=== PATIENT | female | born 1940 | race Caucasian/White ===

== ENCOUNTER 2018-09-01 10:46 | Emergency (ER) | payer OTHER ==
[~2018-09-01] VITALS: Ht 165.1 cm; Wt 79.4 kg
[~2018-09-01 10:46] MED LIST: ASPI81CH PO; ATOR40TA PO; Altoprev20 MG PO; CALCIUM GUMMIE1 EACH PO; CHOL10002 PO; CLOP75 PO; HYDACE5 PO; Hair, Skin & N1 EACH PO; LISI5 PO; METO25ER PO; NITR.4SL SL; PARO20; PRAV20 PO; SERT25 PO; TEMA15 PO; Vitamin C1000 M1 PO; Vitamin D2000 UNIT PO
[2018-09-01] MEDS ORDERED: ROSU10TA PO (11:18)
[2018-09-01] MEDS ORDERED: UBID10 (11:19)
[2018-09-01 11:22] LABS: BASOPHILS ABSOLUTE AUTO 0.07 K/mm3 (0.00-0.23); BASOPHILS PERCENT AUTO 1 % (0-2); EOSINOPHILS ABSOLUTE AUTO 0.16 K/mm3 (0.00-0.68); EOSINOPHILS PERCENT AUTO 2 % (0-6); Hematocrit 43.4 % (33.0-51.0); Hemoglobin 13.9 g/dL (11.5-16.0); IMMATURE GRAN ABSOLUTE AUTO 0.02 K/mm3 (0.00-0.10); IMMATURE GRAN PERCENT AUTO 0 % (0-1); LYMPHOCYTES ABSOLUTE AUTO 1.92 K/mm3 (0.84-5.20); LYMPHOCYTES PERCENT AUTO 27 % (21-46); MONOCYTES ABSOLUTE AUTO 0.89 K/mm3 (0.16-1.47); MONOCYTES PERCENT AUTO 13 % (4-13); Mean Corpuscular HGB 29.6 pg (26.0-34.0); Mean Corpuscular Volume 93 fL (80-100); Mean Platelet Volume 9.2 fL (9.1-12.4); NEUTROPHILS ABSOLUTE AUTO 4.08 K/mm3 (1.96-9.15); NEUTROPHILS PERCENT AUTO 57 % (41-73); Platelet Count 324 K/mm3 (150-400); RDW Coefficient Variation 13.9 % (11.7-14.2); RDW Standard Deviation 47.2 fL (35.1-46.3); Red Blood Cell Count 4.69 M/mm3 (3.80-5.20); White Blood Cell Count 7.14 K/mm3 (4.00-11.30)
[2018-09-01 12:00] LABS: Alanine Aminotransfer (ALT/SGP 28 U/L (12-78); Albumin, Blood 3.9 g/dL (3.4-5.0); Alk Phos 94 U/L (50-136); Anion Gap 5 mmol/L (6-16); Aspartate Aminotrans (AST/SGOT 31 U/L (12-37); Bilirubin, Total 0.4 mg/dL (0.1-1.0); Blood Urea Nitrogen 11 mg/dL (8-24); Bun/Creatinine Ratio 10.2 (12.0-20.0); CO2, Blood 27 mmol/L (21-32); Calcium, Blood 9.1 mg/dL (8.5-10.1); Chloride, Blood 108 mmol/L (98-108); Creatinine, Blood 1.08 mg/dL (0.40-1.00); Globulin, Blood 3.8 g/dL (2.2-4.0); Glomerular Filtration Rate 52 (60-); Glucose, Blood 131 mg/dL (70-99); Potassium, Blood 4.5 mmol/L (3.5-5.5); Sodium, Blood 140 mmol/L (136-145); Total Protein, Blood 7.7 g/dL (6.4-8.2); Troponin I <0.015 ng/mL (0.000-0.040)
== END 2018-09-01 14:19 | disposition home or self-care (01) ==
LOC: ER 10:46
PROVIDERS: Emergency Medicine
DX: R53.1 Weakness (principal); Z88.1 Allergy status to other antibiotic agents; Z88.8 Allergy status to other drugs, medicaments and biological substances; Z79.82 Long term (current) use of aspirin; Z79.899 Other long term (current) drug therapy; I25.2 Old myocardial infarction; I25.10 Atherosclerotic heart disease of native coronary artery without angina pectoris
CPT/HCPCS: 36415; 71045; 80053; 83880; 84484; 85025; 93005; 93010; 99285-25

== ENCOUNTER 2020-01-24 11:16 | Day surgery (SDC) | payer OTHER ==
[~2020-01-24 11:16] MED LIST changes: +ROSU10TA PO; +UBID10
[2020-01-24] MEDS ORDERED: METO25ER (12:04)
[2020-01-24] MEDS ORDERED: ELIQUIS5 MG (12:04)
--- NOTE | 2020-01-24 14:19 | NUR ---
PT DRESSED, IV DC'D INTACT, PT DC'D BY THIS RN BY WC WITH SON DRIVING PT HOME
== END 2020-01-24 22:34 | disposition home or self-care (01) ==
LOC: MHTC 11:16
DX: I48.0 Paroxysmal atrial fibrillation (principal); I48.92 Unspecified atrial flutter
CPT/HCPCS: 92960; 93005; 93010; 93312; 93325; 99152; J2250; J3010; J7040

== ENCOUNTER 2020-10-08 13:23 | Emergency (ER) | payer OTHER ==
[~2020-10-08] VITALS: Ht 162.6 cm; Wt 74.4 kg
[~2020-10-08 13:23] MED LIST changes: +ELIQUIS5 MG; +METO25ER
[2020-10-08 13:52] LABS: BASOPHILS ABSOLUTE AUTO 0.05 K/mm3 (0.00-0.23); BASOPHILS PERCENT AUTO 1 % (0-2); EOSINOPHILS ABSOLUTE AUTO 0.12 K/mm3 (0.00-0.68); EOSINOPHILS PERCENT AUTO 1 % (0-6); Hematocrit 43.9 % (33.0-51.0); Hemoglobin 14.2 g/dL (11.5-16.0); IMMATURE GRAN ABSOLUTE AUTO 0.03 K/mm3 (0.00-0.10); IMMATURE GRAN PERCENT AUTO 0 % (0-1); LYMPHOCYTES ABSOLUTE AUTO 2.16 K/mm3 (0.84-5.20); LYMPHOCYTES PERCENT AUTO 22 % (21-46); MONOCYTES PERCENT AUTO 9 % (4-13); Mean Corpuscular HGB 29.7 pg (26.0-34.0); Mean Corpuscular HGB Conc 32.3 g/dL (31.5-36.5); Mean Corpuscular Volume 92 fL (80-100); Mean Platelet Volume 9.1 fL (9.1-12.4); NEUTROPHILS ABSOLUTE AUTO 6.38 K/mm3 (1.96-9.15); NEUTROPHILS PERCENT AUTO 66 % (41-73); Platelet Count 271 K/mm3 (150-400); RDW Coefficient Variation 14.4 % (11.7-14.2); RDW Standard Deviation 49.3 fL (35.1-46.3); Red Blood Cell Count 4.78 M/mm3 (3.80-5.20); White Blood Cell Count 9.64 K/mm3 (4.00-11.30)
[2020-10-08 14:14] LABS: Albumin, Blood 3.6 g/dL (3.4-5.0); Albumin/Globulin Ratio 0.9 (0.8-1.8); Bilirubin, Total 0.6 mg/dL (0.1-1.0); Bun/Creatinine Ratio 9.3 (12.0-20.0); Calcium, Blood 9.3 mg/dL (8.5-10.1); Creatinine, Blood 1.08 mg/dL (0.40-1.00); Potassium, Blood 4.2 mmol/L (3.5-5.5); Total Protein, Blood 7.6 g/dL (6.4-8.2)
[2020-10-08] MEDS ORDERED: ATEN25 PO (14:51)
[2020-10-08] MEDS ORDERED: FLUO10 PO (14:53)
[2020-10-08] MEDS ORDERED: HYDR1TAB94 PO (17:28)
[2020-10-08] MEDS ORDERED: XYLIMELTS550 MG MM (17:28)
[2020-10-08] MEDS ORDERED: Cleocin HCl300 MG PO (17:28)
== END 2020-10-08 17:48 | disposition home or self-care (01) ==
LOC: ER 13:23
PROVIDERS: Physician Assistant
DX: K11.21 Acute sialoadenitis (principal); Z79.82 Long term (current) use of aspirin; Z79.899 Other long term (current) drug therapy; Z79.01 Long term (current) use of anticoagulants; Z88.1 Allergy status to other antibiotic agents
CPT/HCPCS: 36415; 70491; 80053; 82150; 83690; 85025; 96365-59; 96367-59; 99284-25; J1956; J7030; Q9967

== ENCOUNTER → 2020-12-01 | Outpatient (CLI) | payer OTHER ==
[~2020-12-01] MED LIST changes: +ATEN25 PO; +Cleocin HCl300 MG PO; +FLUO10 PO; +HYDR1TAB94 PO; +XYLIMELTS550 MG MM
== END | disposition home or self-care (01) ==
LOC: LAB SHORT 10:56
DX: R30.0 Dysuria (principal)
CPT/HCPCS: 87077; 87086; 87186

== ENCOUNTER 2022-12-16 08:29 | Emergency (ER) | payer OTHER ==
[~2022-12-16] VITALS: Ht 162.6 cm; Wt 77.1 kg
[2022-12-16] MEDS ORDERED: PROBIOTIC1 EA14 PO (09:20)
[2022-12-16] MEDS ORDERED: ERGO400 (09:20)
[2022-12-16] MEDS ORDERED: Vitamin B-12250 MCG PO (09:20)
[2022-12-16] MEDS ORDERED: DICLOFENAC SOD100 GM TP (09:21)
[2022-12-16] MEDS ORDERED: ZOCOR20 MG PO (09:21)
[2022-12-16] MEDS ORDERED: NITR.4SL SL (09:21)
[2022-12-16] MEDS ORDERED: XARELTO20 M1 PO (09:22)
[2022-12-16 09:38] LABS: BASOPHILS ABSOLUTE AUTO 0.04 K/mm3 (0.00-0.23); BASOPHILS PERCENT AUTO 1 % (0-2); EOSINOPHILS ABSOLUTE AUTO 0.15 K/mm3 (0.00-0.68); EOSINOPHILS PERCENT AUTO 3 % (0-6); Hematocrit 40.6 % (33.0-51.0); Hemoglobin 13.5 g/dL (11.5-16.0); IMMATURE GRAN ABSOLUTE AUTO 0.02 K/mm3 (0.00-0.10); IMMATURE GRAN PERCENT AUTO 0 % (0-1); LYMPHOCYTES ABSOLUTE AUTO 1.43 K/mm3 (0.84-5.20); LYMPHOCYTES PERCENT AUTO 26 % (21-46); MONOCYTES ABSOLUTE AUTO 0.66 K/mm3 (0.16-1.47); MONOCYTES PERCENT AUTO 12 % (4-13); Mean Corpuscular HGB 30.9 pg (26.0-34.0); Mean Corpuscular HGB Conc 33.3 g/dL (31.5-36.5); Mean Corpuscular Volume 93 fL (80-100); Mean Platelet Volume 9.2 fL (9.1-12.4); NEUTROPHILS ABSOLUTE AUTO 3.24 K/mm3 (1.96-9.15); NEUTROPHILS PERCENT AUTO 59 % (41-73); Platelet Count 281 K/mm3 (150-400); RDW Coefficient Variation 14.2 % (11.7-14.2); Red Blood Cell Count 4.37 M/mm3 (3.80-5.20); White Blood Cell Count 5.54 K/mm3 (4.00-11.30)
[2022-12-16 09:59] LABS: Albumin, Blood 3.3 g/dL (3.4-5.0); Bilirubin, Total 0.4 mg/dL (0.1-1.0); Bun/Creatinine Ratio 11.1 (12.0-20.0); Calcium, Blood 8.2 mg/dL (8.5-10.1); Creatinine, Blood 0.99 mg/dL (0.40-1.00); Globulin, Blood 3.3 g/dL (2.2-4.0); Magnesium, Blood 2.2 mg/dL (1.6-2.4); Potassium, Blood 4.2 mmol/L (3.5-5.5); Total Protein, Blood 6.6 g/dL (6.4-8.2)
[2022-12-16 13:00] VITALS: BP 138/84
== END 2022-12-16 13:18 | disposition home or self-care (01) ==
LOC: ER 08:29
PROVIDERS: Student in an Organized Health Care Education/Training Program
DX: R07.89 Other chest pain (principal); I25.10 Atherosclerotic heart disease of native coronary artery without angina pectoris; I25.2 Old myocardial infarction; I10 Essential (primary) hypertension; I48.91 Unspecified atrial fibrillation; Z95.5 Presence of coronary angioplasty implant and graft; Z79.01 Long term (current) use of anticoagulants; Z79.82 Long term (current) use of aspirin; Z79.899 Other long term (current) drug therapy; Z88.1 Allergy status to other antibiotic agents
CPT/HCPCS: 71046; 80053; 83735; 84484; 85025; 93005; 93010; 99285-25

== ENCOUNTER 2023-01-01 13:49 | Observation (INO) | payer OTHER ==
[~2023-01-01] VITALS: Ht 162.6 cm; Wt 77.3 kg
[~2023-01-01 13:49] MED LIST changes: +DICLOFENAC SOD100 GM TP; +ERGO400; +PROBIOTIC1 EA14 PO; +Vitamin B-12250 MCG PO; +XARELTO20 M1 PO; +ZOCOR20 MG PO
[2023-01-01 14:08] LABS: BASOPHILS ABSOLUTE AUTO 0.05 K/mm3 (0.00-0.23); BASOPHILS PERCENT AUTO 1 % (0-2); EOSINOPHILS ABSOLUTE AUTO 0.11 K/mm3 (0.00-0.68); EOSINOPHILS PERCENT AUTO 2 % (0-6); Hematocrit 43.2 % (33.0-51.0); Hemoglobin 14.3 g/dL (11.5-16.0); IMMATURE GRAN ABSOLUTE AUTO 0.01 K/mm3 (0.00-0.10); IMMATURE GRAN PERCENT AUTO 0 % (0-1); LYMPHOCYTES ABSOLUTE AUTO 1.89 K/mm3 (0.84-5.20); LYMPHOCYTES PERCENT AUTO 30 % (21-46); MONOCYTES PERCENT AUTO 13 % (4-13); Mean Corpuscular HGB 30.4 pg (26.0-34.0); Mean Corpuscular HGB Conc 33.1 g/dL (31.5-36.5); Mean Corpuscular Volume 92 fL (80-100); Mean Platelet Volume 9.5 fL (9.1-12.4); NEUTROPHILS ABSOLUTE AUTO 3.44 K/mm3 (1.96-9.15); NEUTROPHILS PERCENT AUTO 55 % (41-73); Platelet Count 310 K/mm3 (150-400); RDW Standard Deviation 47.8 fL (35.1-46.3)
[2023-01-01 14:22] LABS: International Normalized Ratio 0.98; Prothrombin Time Results 10.3 Sec (9.7-11.5)
[2023-01-01 14:26] LABS: Albumin, Blood 3.5 g/dL (3.4-5.0); Bilirubin, Total 0.4 mg/dL (0.1-1.0); Bun/Creatinine Ratio 18.6 (12.0-20.0); Calcium, Blood 8.7 mg/dL (8.5-10.1); Creatinine, Blood 1.02 mg/dL (0.40-1.00); Globulin, Blood 3.4 g/dL (2.2-4.0); Potassium, Blood 4.6 mmol/L (3.5-5.5); Total Protein, Blood 6.9 g/dL (6.4-8.2)
[2023-01-01 20:22] VITALS: BP 149/79
[2023-01-01 20:24] VITALS: BP 130/82
[2023-01-01 20:26] VITALS: BP 130/81
--- NOTE | 2023-01-01 20:38 | NUR ---
ADMIT NOTE HANDOFF RECEIVED FROM INTAKE CLINICIAN GISELE. PT ARRIVED TO FLOOR VIA WC. PT ORIENTED TO UNIT. PT REFUSING ER ORDERED METOPROLOL DUE TO HX OF HALLUCINATIONS, CALLED HOSPITALIST. METOPROLOL DC'D. CARDIZEM ONE TIME DOSE ORDERED. I DID CALL PHARMACY X2 TO VERIFY SAFETY OF GIVING CARDIZEM (SOMETIMES CONFLICTS WITH XARELTO. PHARMACY STATES THAT THIS SMALL DOSE WILL BE SAFE TO GIVE.
--- NOTE | 2023-01-02 04:05 | NUR ---
SHIFT SUMMARY ADMITTED FOR FALLS AT HOME. FULL CODE. WE ARE MONITORING HER VIA TELEMETRY, SHE IS AFIB, BUT RATE IS CONTROLLED. SEE PREVIOUS NOTE. TRENDING TROPONINS. LACERATION ON BACK OF SCALP IS MINOR, NO BLEEDING NOTED. NS INFUSING ORDERED. ORTHOSTATIC VITAL SIGNS ARE UNREMARKABLE. SHE IS ON XARELTO. REMOTE HX OF [place] AND CARDIAC STENTS. SHE DENIES PAIN OR DIZZINESS THIS SHIFT.
[2023-01-02 04:15] VITALS: BP 130/69
[2023-01-02 05:40] LABS: Bun/Creatinine Ratio 14.3 (12.0-20.0); Calcium, Blood 8.2 mg/dL (8.5-10.1); Creatinine, Blood 0.91 mg/dL (0.40-1.00); Potassium, Blood 4.5 mmol/L (3.5-5.5)
[2023-01-02 07:56] VITALS: BP 132/51
[2023-01-02 13:58] VITALS: BP 113/82
[2023-01-02 15:49] VITALS: BP 120/66
[2023-01-02 19:56] VITALS: BP 133/72
[2023-01-03 03:43] VITALS: BP 135/90
--- NOTE | 2023-01-03 05:20 | NUR ---
PT ANXIOUS TO COMPLETE STRESS TEST TODAY, TYLENOL GIVEN FOR FELIZ PAIN PT STATES FELIZ IS CAUSED BY THE STRESS OF WAITING ALL DAY WITH NO INTERVENTION. OTHERWISE UNEVENTFUL NIGHT. AOX4, PLEASANT, INDEPENDENT, VSS ON RA. FIRE SAFETY REVIEWED.
[2023-01-03 07:50] VITALS: BP 139/71
[2023-01-03 15:49] VITALS: BP 136/56
[2023-01-03] MEDS ORDERED: DILTIAZEM PO (17:10)
--- NOTE | 2023-01-03 18:30 | NUR ---
PT DISCHARGED FROM THE UNIT. IV REMOVED. DISCHARGE INSTRUCTIONS REVIEWED. MEDICATIONS FAXED TO [facility]. INSTUCTED ON FOLLOW UP APTS. PT HAD ZIO PATCH APPLIED PRIOR TO DX. SON TO DRIVE HOME
== END 2023-01-03 17:46 | disposition home or self-care (01) ==
LOC: ER 13:49 → MEDS 13:50
PROVIDERS: Student in an Organized Health Care Education/Training Program; ADMIT Nurse Practitioner Acute Care
DX: R55 Syncope and collapse (principal); I48.91 Unspecified atrial fibrillation; S06.9X9A Unspecified intracranial injury with loss of consciousness of unspecified duration, initial encounter; I25.10 Atherosclerotic heart disease of native coronary artery without angina pectoris; I10 Essential (primary) hypertension; E78.5 Hyperlipidemia, unspecified; F32.9 Major depressive disorder, single episode, unspecified; Z95.5 Presence of coronary angioplasty implant and graft; Z87.891 Personal history of nicotine dependence; Z88.8 Allergy status to other drugs, medicaments and biological substances; Z88.1 Allergy status to other antibiotic agents; W18.30XA Fall on same level, unspecified, initial encounter
CPT/HCPCS: 12002; 36415; 70450; 78452; 80048; 80053; 84484; 85025; 85610; 86850; 86900; 86901; 93005; 93010; 93017; 93246; 96360-59; 96361-59; 96374; 99285-25; A9270; A9500; G0378; J0706; J2785; J7030

== ENCOUNTER → 2024-03-01 | Outpatient (CLI) | payer OTHER ==
[~2024-03-01] MED LIST changes: +DILTIAZEM PO; +LIDOCAINE1 EACH TOP; +PREG75 PO; +PYRIDIUM200 MG PO
== END ==
LOC: LAB 14:20 → LAB SHORT 14:20
DX: R30.0 Dysuria (principal); R35.0 Frequency of micturition
CPT/HCPCS: 87077; 87086; 87186

== ENCOUNTER 2024-03-07 14:08 | Emergency (ER) | payer OTHER ==
[~2024-03-07] VITALS: Ht 162.6 cm; Wt 73.9 kg
[~2024-03-07 14:08] MED LIST changes: -LIDOCAINE1 EACH TOP; -PREG75 PO; -PYRIDIUM200 MG PO
[2024-03-07 14:30] VITALS: BP 131/64
[2024-03-07] MEDS ORDERED: Lidocaine 4% 1 Patch TOP ONE (16:15)
[2024-03-07 16:33] LABS: Source, Urine Clean Catch
[2024-03-07 16:36] LABS: Appearance, Urine Clear (Clear); Bilirubin, Urine Neg (Neg); Blood, Urine Neg (Neg); Color, Urine Yellow (P-Yellow); Glucose Qualitative, Urine Neg (Neg); Ketones, Urine Neg (Neg); Leukocyte Esterase, Urine Neg (Neg); Nitrite, Urine Neg (Neg); Protein, Urine Neg (Neg); Urobilinogen, Urine NORM (Normal)
[2024-03-07] MEDS ORDERED: PREG75 PO (16:59)
[2024-03-07] MEDS ORDERED: LIDOCAINE1 EACH TOP (17:03)
[2024-03-07] MEDS ORDERED: PYRIDIUM200 MG PO (17:03)
== END 2024-03-07 17:20 | disposition home or self-care (01) ==
LOC: ER 14:08
PROVIDERS: Student in an Organized Health Care Education/Training Program
DX: N32.89 Other specified disorders of bladder (principal); G62.9 Polyneuropathy, unspecified; M25.552 Pain in left hip; I10 Essential (primary) hypertension; I48.91 Unspecified atrial fibrillation; E78.5 Hyperlipidemia, unspecified; Z79.899 Other long term (current) drug therapy; Z88.1 Allergy status to other antibiotic agents; Z88.8 Allergy status to other drugs, medicaments and biological substances
CPT/HCPCS: 81003; 99283; A9270

== ENCOUNTER 2024-09-12 11:02 | Day surgery (SDC) | payer OTHER ==
[~2024-09-12] VITALS: Ht 165.1 cm; Wt 76.6 kg
[2024-09-12] VITALS (17 sets, daily range): BP systolic 106–142; BP diastolic 50–87
[~2024-09-12 11:02] MED LIST changes: +ATOR10; +Acetaminophen 500 MG Tab PO SCH; +COQ1050 MG PO; +Chlorhexidine Mouth Care 15 ML UDC MT SCH; +Clindamycin 900mg in D5W 50ML 50 ML IV SCH; +Crestor40 MG PO; +DILTIAZEM 24HR120 M2 PO; +GINGER PO; +GINKGO BILOBA PO; +HAIR, SKIN AND1 EAC3 PO; +HYDROCODONE-AC1 EA19 PO; +LIDOCAINE1 EACH TOP; +LYRICA50 M1 PO; +Lactated Ringer's 1,000 ML IV SCH; +MAGNESIUM PO; +OMEGA 3 PO; +OxyCODONE HCL 10 MG TABCR PO SCH; +PREG25; +PREG75 PO; +PYRIDIUM200 MG PO; +Ropivacaine 0.5% HCl/Pf 123.125 MG,EPINEPHrine HCL 0.25 MG,Ketorolac Tromethamine 15 MG... INFIL SCH; +SUPER B COMPLEX PO; +TURMERIC PO; +Tranexamic Acid 100 ML IV SCH; +VITAMIN B121000 MCG PO; +VITAMIN C125 MG PO; +VITAMIN D310 MC4 PO; +Vancomycin HCL 1,000 MG in NS 250 ML IV SCH
[2024-09-12] MEDS ORDERED: Ondansetron HCl 2 MG / ML 2ML Vial IV PRN (11:05)
[2024-09-12] MEDS ORDERED: DiphenhydrAMINE HCL 25 MG Cap PO PRN (11:05)
[2024-09-12] MEDS ORDERED: OxyCODONE HCL 5 MG TAB PO PRN ×2 (11:05)
[2024-09-12] MEDS ORDERED: Lactated Ringer's 1,000 ML IV PRN (11:05)
[2024-09-12] MEDS ORDERED: Metoclopramide HCl 5MG / ML 2ML Vial IV PRN (11:05)
[2024-09-12] MEDS ORDERED: CeFAZolin Sodium 2,000 MG in NS 100 ML IV SCH ×3 (11:05→22:00)
[2024-09-12] MEDS ORDERED: HYDROmorphone HCl/Pf 1MG SYR IV PRN (11:05)
[2024-09-12] MEDS ORDERED: Promethazine HCl 25 MG Tab PO PRN (11:05)
[2024-09-12] MEDS ORDERED: Ketorolac Tromethamine 30mg Vial IV SCH (12:00)
[2024-09-12] MEDS ORDERED: propofoL 50 ML IV ONE (13:22)
[2024-09-12] MEDS ORDERED: Midazolam HCl 1MG / ML 2ML Vial ONE (13:23)
[2024-09-12] MEDS ORDERED: FentaNYL Citrate 50 MCG/ML 2 ML Injection ONE (13:23)
[2024-09-12] MEDS ORDERED: Dexamethasone Sod Phos 10 MG/ML 1ML VIAL ONE (13:55)
[2024-09-12] MEDS ORDERED: Phenylephrine HCl 100 MCG/ML-NS 10MLSYR (1MG/10ML) ONE (13:58)
[2024-09-12] MEDS ORDERED: ePHEDrine Sulfate 50 MG/ML 1ML Injection ONE (14:04)
[2024-09-12] MEDS ORDERED: propofoL 20 ML IV ONE (15:30)
[2024-09-12] MEDS ORDERED: CeFAZolin Sodium 1000 mg Vial ONE ×2 (15:49)
[2024-09-12] MEDS ORDERED: Acetaminophen 500 MG Tab PO SCH (16:00)
--- NOTE | 2024-09-12 17:47 | NUR ---
POST OP: REPORT RECEIVED FROM PACU. PT TO UNIT AT 1703. PT IS A/O, VSS . PT REPORTS FULL SENSATION IN BLE AND ABLE TO WIGGLE TOES, PEDAL PULSE +2. SURGICAL SITE AT L HIP WNL. PT DENIES PAIN OR NAUSEA AT THIS TIME AND DENIES URGE TO VOID. CALL LIGHT IN REACH AND INSTRUCTED TO CALL STAFF IF NEED OOB.
[2024-09-12] MEDS ORDERED: Clindamycin 900mg in D5W 50ML 50 ML IV SCH (18:50)
[2024-09-12] MEDS ORDERED: Docusate Sodium 100 MG Cap PO SCH (21:00)
--- NOTE | 2024-09-12 22:00 | NUR ---
ASSUMED CARE REPORT TAKEN FROM FARIHA GRANDE TO ASSUME CARE OF PT. PT RESTING, IN BED WITH EYES OPEN. CALL LIGHT WITHIN REACH. POST OP ANTIBIOTIC INFUSING.
--- NOTE | 2024-09-12 22:10 | NUR ---
TRANSFER OF PRIMARY NURSE. REPORT GIVEN TO NOVA DAMON RN TO ASSUME CARE OF PATIENT AT 2204. INTRODUCED NOVA TO PT, PT VERBALIZED UNDERSTANDING OF CHANGE IN NURSE AND DENIES QUESTIONS.
[2024-09-13] MEDS ORDERED: Cefazolin 2000MG/Dextrose,ISO 50 ML IV SCH
[2024-09-13 03:53] VITALS: BP 123/62
[2024-09-13 04:52] LABS: BASOPHILS ABSOLUTE AUTO 0.01 K/mm3 (0.00-0.23); BASOPHILS PERCENT AUTO 0 % (0-2); EOSINOPHILS PERCENT AUTO 0 % (0-6); Hematocrit 38.9 % (33.0-51.0); Hemoglobin 12.9 g/dL (11.5-16.0); IMMATURE GRAN ABSOLUTE AUTO 0.06 K/mm3 (0.00-0.10); IMMATURE GRAN PERCENT AUTO 0 % (0-1); LYMPHOCYTES ABSOLUTE AUTO 0.67 K/mm3 (0.84-5.20); LYMPHOCYTES PERCENT AUTO 5 % (21-46); MONOCYTES ABSOLUTE AUTO 0.79 K/mm3 (0.16-1.47); MONOCYTES PERCENT AUTO 5 % (4-13); Mean Corpuscular HGB 30.1 pg (26.0-34.0); Mean Corpuscular HGB Conc 33.2 g/dL (31.5-36.5); Mean Corpuscular Volume 91 fL (80-100); Mean Platelet Volume 9.7 fL (9.1-12.4); NEUTROPHILS ABSOLUTE AUTO 13.35 K/mm3 (1.96-9.15); NEUTROPHILS PERCENT AUTO 90 % (41-73); Platelet Count 271 K/mm3 (150-400); RDW Coefficient Variation 14.4 % (11.7-14.2); RDW Standard Deviation 48.2 fL (35.1-46.3); Red Blood Cell Count 4.29 M/mm3 (3.80-5.20); White Blood Cell Count 14.88 K/mm3 (4.00-11.30)
[2024-09-13 05:13] LABS: Bun/Creatinine Ratio 23.6 (12.0-20.0); Calcium, Blood 8.8 mg/dL (8.5-10.1); Creatinine, Blood 0.8 mg/dL (0.40-1.00); Potassium, Blood 4.7 mmol/L (3.5-5.5)
--- NOTE | 2024-09-13 05:34 | NUR ---
CHEST PRESSURE CLOSE TO 0400, PT BEGAN REPORTING CHEST PRESSURE, AND A HEAVINESS IN HER CHEST. PT DENIES SOB, OR NAUSEA. EKG PERFORMED WHICH SHOWED AFIB WITH FIRST EKG. REPEATED EKG SHOWED AFLUTTER. RATE CONTROLLED IN THE 80'S. PT REPORTS THAT SHE BELIEVES THE PAIN IS RELATED TO HER POSITIONING IN THE BED, AND LAYING IN THE SAME SPOT. VITALS OBTAINED AND WNL, SKIN IS WARM AND DRY. RESP E/U, SATS WNL. WITHIN A BRIEF AMOUNT OF TIME PT REPORTS THAT THE HEAVINESS IN HER CHEST HAD STARTED TO SUBSIDE AND THAT SHE FELT MUCH BETTER. SHE REPORTED IT WENT FROM A 7/10 TO 1/10. SHE REPORTS THAT SHE BELEIVED THAT REPOSITIONING IN THE BED HELPED RELIVE THE PAIN. PT HAD NO PROVIDER CONSULT ORDER IN PLACE FOR MEDICAL MANAGEMENT. HAD TO REACH OUT TO [employer] WORK PROGRAM COORDINATOR FOR PROVIDER CONSULT ORDER. 0420- CALLED DR. HERNANDEZ DIRECTLY ON CELL PHONE AND DID NOT RECEIVE AN ANSWER. I THEN CALLED ANSWER SERVICE, THEY ATTEMPTED TO CONTACT HIM FOUR TIMES, AND STILL HE HAD NOT CALLED BACK. THIS RN CALLED HIS CELL PHONE TWICE AND ANSWRING SERVICE TWICE. CHART CALCULATOR WAS MADE AWARE OF PT CHEST PAIN AND OUR ATTEMPT TO REACH SURGEON. SINCE DR. HERNANDEZ COULD NOT BE REACHED, DR. HERNANDEZ WAS CONTACTED, HE CALLED BACK AND GAVE ORDER FOR PROVIDER CONSULT AT 0525. 0525-HOSPITALIST CONTACTED, AND NOTIFIED OF PROVIDER CONSULT. DR. HOOK, REVIEWED PT CHART. I NOTIFIED HIM OF EKG RESULTS, AND PT VITALS AND THAT CHEST PAIN HAD SUBSIDED AND PT NOW REPORTING IT A 1/10 DOWN FROM 7/10. HE STATES THAT PT APPEARS STABLE AT THIS TIME, AND ORDERED THAT I CONTACT [facility] AT 0600 TO NOTIFY FOR FURTHER MANAGEMENT. NO ADDITIONAL ORDERS AT THIS TIME. PT RESTING IN BED WITHOUT ACUTE DISTRESS.
--- NOTE | 2024-09-13 06:17 | NUR ---
CHEST PRESSURE-UPDATE DR. MCDUFFIE FROM [facility] CALLED AND NOTIFIED OF PROVIDER CONSULT ORDER, AND THAT DR. HOOK REFERRED TO HIM FOR MEDICAL MANAGMENT. NOTIFIED HIM OF PT CHEST PAIN, AND THAT PT REPORTING THAT IS IT COMPLETLEY RESOLVED AT THIS TIME. HE GAVE NO ORDERS AT THIS TIME. PT IS RESTING IN BED AT THIS TIME WITHOUT DISTRESS, AND REPORTING THAT CHEST PAIN AND PRESSURE IS GONE. PT DECLINING TO SIT IN THE RECLINER THIS AM, AND WOULD LIKE TO STAY IN BED FOR ANOTHER HOUR. CALL LIGHT WITHIN REACH.
--- NOTE | 2024-09-13 06:53 | NUR ---
SHIFT SUMMARY PT POD 0 LEFT TOTAL HIP. PT HAS BEEN UP AND AMBULATING, TOLEARING PO INTAKE. VITALS ARE STABLE. PT VOIDING. SURGICAL SITE WNL, DRESSING INTACT. PT ABLE TO WIGGLE TOES AND DOES NOT REPORT N/T IN EXT. PT REPORTED CHEST PRESSURE AROUND 0400, EPISODE WAS BRIEF AND IS NOW RESOLVED PER PT REPORT. PROVIDER NOTIFIED OF CHEST PAIN AND CONSULT IN PLACE FOR MEDICAL MANAGMENT, SEE PRIOR NURSES NOTES. IV ANTIBIOTICS PER ORDERS. PT REPORTS MINIMAL PAIN. DECLINES TORADOL THIS AM, BUT DID TAKE SCHEDULED TYLENOL AT MIDNIGHT. PT PENDING PT/OT CONSULT. BED IN LOWEST POSITION, CALL LIGHT WITHIN REACH.
[2024-09-13 07:23] VITALS: BP 111/59
--- NOTE | 2024-09-13 10:15 | NUR ---
REFUSAL OF REFERRAL TO DR. STILL: PER DR. RODRIGUEZ, PATIENT SHOULD BE REFERRED TO HER GAS PLANT OPERATOR DR. STILL TO FOLLOW UP RE: CHEST DISCOMFORT LAST NIGHT. PATIENT REFUSED THE REFERRAL AND REPORTED THAT SHE WOULD FOLLOW UP ON HER OWN.
--- NOTE | 2024-09-13 10:40 | NUR ---
DISCHARGE SUMMARY: PATIENT ALERT AND ORIENTED X4 THIS MORNING. PATIENT DENIES NUMBNESS/TINGLING IN ALL EXTREMITIES. MOBILITY PRESENT IN ALL EXTREMITIES. PATIENT STABLE ON ROOM AIR WITH SPO2 >92%. DENIED SHORTNESS OF BREATH OR DIFFFICULTY BREATHING. VITALS STABLE WITH MAPS >65, RATE CONTROL OF HR, AND SBP >100. PATIENT DENIED CHEST PAIN/PRESURE/DISCOMFORT, DIZZINESS, SOB, JAW PAIN, N/T IN UPPER EXTREMITIES. PATIENT VOIDING WITHOUT DIFFICULTY. PATIENT EATING/DRINKING WITHOUT N/V. PATIENT UP TO THE BATHROOM WITH ENERGY ADMINISTRATOR AND FWW. PATIENT FOLLOWING PRECAUTIONS DURING HER TIME HERE. PATIENT DECLINED [facility] (MANAGER TRUST, PT, AND OT). DR. RODRIGUEZ AWARE. PATIENT READY FOR DISCHARGE PER ORDERS. PATIENT REPORTED THAT SHE HAS ALL OF HER MEDICATIONS AT HOME. REVIEWED DISCHARGE INSTRUCTIONS AND EDUCATION. ADDRESSED ALL QUESTIONS AND CONCERNS. PATIENT DECLINED JOINT ICE MACHINE. PATIENT'S SON AT BEDSIDE FOR INSTRUCTIONS. PATIENT DISCHARGED IN WHEELCHAIR WITH ENERGY ADMINISTRATOR AND SON. PATIENT STABLE AT TIME OF DISCHARGE.
[2024-09-13] MEDS ORDERED: Rivaroxaban 10 MG Tab PO SCH (18:00)
== END 2024-09-13 10:00 | disposition home or self-care (01) ==
LOC: ORSCMMR 11:02 → ORD 14:00 → SURS 17:00 → ORSCMMR 09-13 10:00 → ORD 10-10 07:30
PROVIDERS: Orthopaedic Surgery
PROC: 0SRB0J9 Replacement of Left Hip Joint with Synthetic Substitute, Cemented, Open Approach (ICD-10-PCS; principal; 2024-09-12 14:00)
DX: M16.12 Unilateral primary osteoarthritis, left hip (principal); I10 Essential (primary) hypertension; I25.10 Atherosclerotic heart disease of native coronary artery without angina pectoris; I25.2 Old myocardial infarction; Z79.899 Other long term (current) drug therapy; Z79.01 Long term (current) use of anticoagulants
CPT/HCPCS: 36415; 72170; 80048; 83735; 85025; 93005; 93010; 97112; 97161; A9270; C1713; C1776; J0171; J0690; J0735; J1100; J1885; J2250; J2371; J2704; J2795; J3010; J3370; J7050; J7120